=== PATIENT | female | born 1955 | race African-American/Black ===

== ENCOUNTER 2017-12-30 09:15 | Emergency (ER) | payer OTHER, BC ==
[2017-12-30 10:58] VITALS: BP 175/81
== END 2017-12-30 11:21 | disposition home or self-care (01) | DRG 538 ==
LOC: ED 09:15
DX: S76.812A Strain of other specified muscles, fascia and tendons at thigh level, left thigh, initial encounter (principal); S70.12XA Contusion of left thigh, initial encounter; E11.9 Type 2 diabetes mellitus without complications; I10 Essential (primary) hypertension; W01.0XXA Fall on same level from slipping, tripping and stumbling without subsequent striking against object, initial encounter; Y92.89 Other specified places as the place of occurrence of the external cause; Y99.0 Civilian activity done for income or pay